=== PATIENT | male | born 1960 | race American Indian/Alaskan Native ===

== ENCOUNTER 2020-07-23 20:39 | Observation (INO) | payer OTHER ==
--- NOTE | 2020-07-23 22:51 | XRay Report ---
CHEST 2 VIEWS INDICATION: sob,cough and rales. COMPARISON: 02/09/2013. FINDINGS: Support devices: None. Heart: Within normal limits. Lungs/Pleura: No acute air space or interstitial disease. No significant pleural effusion. IMPRESSION: No acute findings. Signer Name: Errol Miranda MD Signed: 07/23/2020 10:47 PM Workstation Name: [id number]
[2020-07-23 23:30] LABS: Basophils % (Auto) 0.2 % (0.0-1.8); Eosinophils % (Auto) 0.1 % (0.0-4.3); Hematocrit 44.5 % (35.5-45.6); Hemoglobin 14.7 gm/dl (11.8-15.2); Lymphocytes # (Auto) 1.3 K/mm3 (1.2-5.4); Lymphocytes % (Auto) 13.2 % (13.4-35.0); Mean Corpuscular HGB Conc 33 % (32-34); Mean Corpuscular Volume 81 fl (84-94); Monocytes % (Auto) 10.8 % (0.0-7.3); Platelet Count 159 K/mm3 (140-440); Red Blood Count 5.49 M/mm3 (3.65-5.03); Red Cell Distribution Width 14.6 % (13.2-15.2)
[2020-07-23 23:44] LABS: Alanine Aminotransferase 27 units/L (7-56); Albumin 4.1 g/dL (3.9-5); BUN/Creatinine Ratio 20; Blood Urea Nitrogen 22 mg/dL (9-20); Calcium 9.2 mg/dL (8.4-10.2); Hemolysis Index 5
--- NOTE | 2020-07-24 02:15 | Emergency Department Report ---
ED General Adult HPI - General Chief complaint: Weakness Stated complaint: WEAKNESS/EMESIS/CHILLS PUI?: Yes Time Seen by Provider: 07/24/20 01:17 Source: patient, RN notes reviewed Mode of arrival: Ambulatory Limitations: No Limitations - History of Present Illness Initial comments: Please note that for the entire history and physical examination, I had on complete personal protective equipment. The patient was evaluated in the emergency department for symptoms described in the history of present illness. He/she was evaluated in the context of the global COVID-19 pandemic, which necessitated consideration that the patient might be at risk for infection with the virus that causes COVID-19. Institutional protocols and algorithms that pertain to the evaluation of patients at risk for COVID-19 are in a state of rapid change based on information released by regulatory bodies including the CDC and federal and state organizations. These policies and algorithms were followed during the patient's care in the emergency department. Please note that these policies, procedures and recommendations changed on a rapid basis. The patient is a pleasant 59-year-old gentleman who is not known to myself previously, has a history of diabetes, hypertension, high cholesterol, and heart disease. He presents to the ER today with a primary complaint of painless weakness, malaise, fatigue, shortness of breath, nausea, without vomiting, no loss of taste, no loss of smell, for the past 48 hours. Patient has had positive exposu res to COVID. The patient has been intermittently wearing masks. The patient has not been self isolating or self quarantining. He denies chest pain. His symptoms are constant for the past 2 days. They worsen with physical exertion. They decreased with rest. -: Gradual, days(s) Improves with: rest Worsens with: movement - Related Data Previous Rx's Medication Instructions Recorded Last Taken Type Albuterol Sulfate [Proair 90 mcg IH Q4HR PRN #2 aer.pow.ba 07/24/20 Unknown Rx Respiclick] Ondansetron [Zofran Odt] 4 mg PO Q8HR PRN #20 tab.rapdis 07/24/20 Unknown Rx Allergies Allergy/AdvReac Type Severity Reaction Status Date / Time No Known Allergies Allergy Unverified 07/23/20 22:14 ED Review of Systems ROS: Stated complaint: WEAKNESS/EMESIS/CHILLS Other details as noted in HPI Constitutional: malaise. denies: fever Eyes: denies: eye discharge, vision change ENT: congestion. denies: throat pain Respiratory: cough Cardiovascular: denies: chest pain Gastrointestinal: nausea. denies: abdominal pain, vomiting Genitourinary: denies: dysuria Musculoskeletal: myalgia Neurological: weakness Hematological/Lymphatic: denies: easy bleeding ED Past Medical Hx - Past Medical History Previous Medical History?: Yes Hx Hypertension: Yes Hx Diabetes: Yes Additional medical history: High Cholesterol - Surgical History Past Surgical History?: Yes Hx Coronary Stent: Yes (2008) Additional Surgical History: 2008 "99% blockage in [place]" Stent placed - Social History Smoking Status: Unknown if ever smoked - Medications Home Medications: Home Medications Medication Instructions Recorded Confirmed Last Taken Type Albuterol Sulfate [Proair 90 mcg IH Q4HR PRN #2 aer.pow.ba 07/24/20 Unknown Rx Respiclick] Ondansetron [Zofran Odt] 4 mg PO Q8HR PRN #20 tab.rapdis 07/24/20 Unknown Rx ED Physical Exam - General Limitations: No Limitations General appearance: alert, in no apparent distress - Head Head exam: Present: atraumatic, normocephalic - Eye Eye exam: Present: normal appearance, EOMI. Absent: nystagmus - ENT ENT exam: Present: normal exam, normal orophraynx, mucous membranes moist, normal external ear exam - Neck Neck exam: Present: normal inspection, full ROM. Absent: tenderness, meningismus - Respiratory Respiratory exam: Present: normal lung sounds bilaterally. Absent: respiratory distress, wheezes, rales, rhonchi, stridor, decreased breath sounds - Cardiovascular Cardiovascular Exam: Present: regular rate, normal rhythm, normal heart sounds. Absent: bradycardia, tachycardia, irregular rhythm, systolic murmur, diastolic murmur, rubs, gallop - GI/Abdominal GI/Abdominal exam: Present: soft. Absent: distended, tenderness, guarding, rebound, rigid, pulsatile mass - Rectal Rectal exam: Present: deferred - Extremities Exam Extremities exam: Present: normal inspection, full ROM, other (2+ pulses noted in the bilateral upper and lower extremities. There is no palpable cord. negative Homans sign. Muscular compartments are soft. The pelvis is stable.). Absent: pedal edema, calf tenderness - Back Exam Back exam: Present: normal inspection, full ROM. Absent: tenderness, CVA tender ness (R), CVA tenderness (L), paraspinal tenderness, vertebral tenderness - Neurological Exam Neurological exam: Present: alert, normal gait, other (No facial droop. Tongue midline. Extraocular movements intact bilaterally. Facial sensation intact to light touch in V1, V2, V3 distribution bilaterally. 5 and a 5 strength in 4 extremities. Sensation intact to light touch in 4 extremities.) - Psychiatric Psychiatric exam: Present: normal affect, normal mood - Skin Skin exam: Present: warm, dry, intact, normal color. Absent: rash ED Course Vital Signs 07/23/20 07/24/20 22:22 01:58 Temperature 98.4 F 99.6 F Pulse Rate 81 90 Respiratory 15 20 Rate Blood Pressure 138/94 Blood Pressure 129/80 [Right] O2 Sat by Pulse 97 99 Oximetry - Reevaluation(s) Reevaluation #1: 07/24/20 03:31 Change in plans: EKG obtained because of patient's past medical and cardiac hi story. His EKG is markedly abnormal without prior for comparison, but it is not a STEMI by morphology. The patient endorses that he is not having chest pain. Patient found to have an elevated troponin. Uncertain if patient is having myocarditis, pericarditis, cardiomyopathy, or atypical presentation of an STEMI. He denies contraindications to systemic anticoagulation. He is amenable to hospitalization at this time. He will be given aspirin, unfractionated heparin. Discussed history, physical, pertinent laboratory studies and EKG findings with cardiology on-call, Dr. Wil Conn, who agrees with plan of care, and will follow in consultation. Hospital physician, Dr. Autsin Campos to admit ED Medical Decision Making - Lab Data Result diagrams: 07/23/20 22:57 07/23/20 22:57 Vital Signs 07/23/20 07/24/20 22:22 01:58 Temperature 98.4 F 99.6 F Pulse Rate 81 90 Respiratory 15 20 Rate Blood Pressure 138/94 Blood Pressure 129/80 [Right] O2 Sat by Pulse 97 99 Oximetry Labs 07/23/20 07/23/20 22:57 22:57 WBC 9.6 RBC 5.49 H Hgb 14.7 Hct 44.5 MCV 81 L MCH 27 L MCHC 33 RDW 14.6 Plt Count 159 Lymph % (Auto) 13.2 L [place] % (Auto) 10.8 H Eos % (Auto) 0.1 Baso % (Auto) 0.2 Lymph # 1.3 [place] # 1.0 H Eos # 0.0 Baso # 0.0 Seg Neutrophils % 75.7 H Seg Neutrophils # 7.3 Sodium 134 L Potassium 4.5 Chloride 95.7 L Carbon Dioxide 22 Anion Gap 21 BUN 22 H Creatinine 1.1 Estimated GFR > 60 BUN/Creatinine Ratio 20 Glucose 241 H Calcium 9.2 Total Bilirubin 1.70 H AST 129 H ALT 27 Alkaline Phosphatase 68 Total Protein 8.5 H Albumin 4.1 Albumin/Globulin Ratio 0.9 - EKG Data -: EKG Interpreted by In EKG shows normal: sinus rhythm Rate: normal - EKG Data When compared to previous EKG there are: previous EKG unavailable 07/24/20 03:30 There is no prior EKG available for comparison. Sinus rhythm, left axis deviation, ST depression 2, 3, aVF, nonspecific ST elevation in aVL, the EKG is abnormal, the EKG is not a STEMI. - Radiology Data Radiology results: report reviewed, image reviewed Print Report Referring Physician: SHABANA CARTER Patient Name: RAFAEL QUESADA Date of : 1960 Sex: Male Report Date: 2020-07-23 Report Status: Finalized Findings [facility] [address] [place] [address] XRay Report Signed Patient: RAFAEL QUESADA MR#: [id number] 0 : 1960 Acct:[id number] Age/Sex: 59 / M ADM Date: 07/23/20 Loc: ED Attending Dr: Ordering Physician: MAVERICK JUDGE Date of Service: 07/23/20 Procedure(s): XR chest routine 2V Accession Number(s): [id number] cc: MAVERICK JUDGE Fluoro Time In Minutes: CHEST 2 VIEWS INDICATION: sob,cough and rales. COMPARISON: 02/09/2013. FINDINGS: Support devices: None. Heart: Within normal limits. Lungs/Pleura: No acute air space or interstitial disease. No significant pleural effusion. IMPRESSION: No acute findings. Signer Name: Errol Miranda MD Signed: 07/23/2020 10:47 PM Workstation Name: [id number] Transcribed By: ES Dictated By: Errol Miranda MD Electronically Authenticated By: Errol Miranda MD Signed Date/Time: 07/23/202246 DD/ 45 TD/TT: - Medical Decision Making Differential diagnosis, including but limited to: Viral syndrome, dehydration, COVID-19 Assessment and plan: 59-year-old gentleman presenting with malaise, fatigue, shortness of breath, without DVT, pulmonary embolism risk factors, low risk by Wells criteria, without chest pain, there is a COVID-19 pandemic, today is day 2/3 of symptoms, we suspect the patient is experiencing COVID-19. His physical examination is unremarkable, he is not hypoxic, he does not desaturate. Counseled patient on the natural history of COVID-19. Patient will need to follow-up with an outpatient primary care doctor. Return precautions are reviewed. The patient verbalizes understanding. Critical Care Time: Yes Critical care time in (mins) excluding proc time.: 35 Critical care attestation.: If time is entered above; I have spent that time in minutes in the direct care of this critically ill patient, excluding procedure time. ED Disposition Clinical Impression: Suspected 2019 novel coronavirus infection, NSTEMI (non-ST elevated myocardial infarction) Disposition: OP ADMIT IP TO THIS HOSP Is pt being admited?: Yes Does the pt Need Aspirin: No Condition: Serious Instructions: COVID-19 Additional Instructions: As we discussed, the patient most likely has novel coronavirus/COVID. the symptoms of COVID will typically persist 10 to 14 days. There is no cure at this time for COVID. Please make certain to self isolate and self quarantine, follow-up with an outpatient primary care doctor within the next 3 to 5 days, wash hands with soap and water frequently, thoroughly and often, patient may take the prescribed medications as needed and directed. Advance diet and drink plenty of fluids as tolerated. Avoid interactions with the very elderly, very young, and those with chronic medical conditions. Return to the emergency room right away with new pain, worsening pain, migration of pain, projectile vomiting, change in mental status, confusion, inability to tolerate liquid feeds, new, worsened or different symptoms not present on the initial emergency room evaluation. Prescriptions: Albuterol Sulfate [Proair Respiclick] 90 mcg IH Q4HR PRN #2 aer.pow.ba PRN Reason: Wheezing Ondansetron [Zofran Odt] 4 mg PO Q8HR PRN #20 tab.rapdis PRN Reason: Nausea Referrals: EDMUND SCHMIDT MD [Staff Physician] - 3-5 Days [facility] [Provider Group] - 3-5 Days Forms: Work/School Release Form(ED)
[2020-07-24] MEDS ORDERED: ASPIRIN 325 MG TAB PO ONE (03:29)
[2020-07-24] MEDS ORDERED: HEPARIN 10,000 UNITS/10 ML VIAL IV ONE (03:29)
[2020-07-24 03:30] LABS: Chol/HDL Ratio 3.47 %
[2020-07-24] MEDS ORDERED: MAGNESIUM HYDROXIDE (MOM) ORAL LIQD UDC PO PRN (04:19)
[2020-07-24] MEDS ORDERED: ONDANSETRON 4 MG/2 ML INJ IV PRN (04:19)
[2020-07-24] MEDS ORDERED: DEXTROSE 50% IN WATER (25GM) 50 ML SYRINGE IV PRN (04:19)
[2020-07-24] MEDS ORDERED: NITROGLYCERIN 0.4 MG TAB SUBL SL PRN (04:19)
[2020-07-24] MEDS ORDERED: MORPHINE 2 MG/1 ML INJ IV PRN (04:19)
[2020-07-24] MEDS ORDERED: ACETAMINOPHEN 325 MG TAB PO PRN ×2 (04:19)
--- NOTE | 2020-07-24 04:29 | History and Physical Report ---
History of Present Illness Date of examination: 07/24/20 Date of admission: 07/24/20 03:33 Chief complaint: Weakness Nausea Cough History of present illness: Patient is a 59-year-old -[place] male with known history of hypertension, diabetes mellitus, hyperlipidemia, coronary artery disease with stent placement in the past presenting to the emergency room today complaining of generalized weakness, fatigue, cough and shortness of breath for the past 2 days. Patient admits that he has been exposed to people with positive COVID and has been wearing mask intermittently. Patient has not self quarantined or isolated himself as he has been having job related travel. Patient denies any chest pain. No headache or dizziness,no fever and no chills. Work-up in the emergency room today reveals elevated troponin, abnormal EKG, however chest x-ray was within normal limits. 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 Patient currently placed on IV heparin and also placed on isolation precautions to rule out Covid19. Past History Past Medical History: CAD, diabetes, hypertension, hyperlipidemia Past Surgical History: PTCA (Stent placement in 2008) Social history: no significant social history Family history: no significant family history Medications and Allergies Allergies Allergy/AdvReac Type Severity Reaction Status Date / Time No Known Allergies Allergy Verified 07/24/20 03:33 Home Medications Medication Instructions Recorded Confirmed Last Taken Type Albuterol Sulfate [Proair 90 mcg IH Q4HR PRN #2 aer.pow.ba 07/24/20 Unknown Rx Respiclick] Ondansetron [Zofran Odt] 4 mg PO Q8HR PRN #20 tab.rapdis 07/24/20 Unknown Rx Active Meds: Active Medications Acetaminophen (Tylenol) 650 mg PO Q6H PRN PRN Reason: Pain, Mild (1-3) Acetaminophen (Tylenol) 650 mg PO Q4H PRN PRN Reason: Pain MILD(1-3)/Fever >100.5/SANCHEZ Aspirin (Ecotrin) 325 mg PO QDAY STONEY Dextrose (D50w (25gm) Syringe) 50 ml IV Q30MIN PRN; Protocol PRN Reason: Hypoglycemia Heparin Sodium/Sodium Chloride (Heparin/ 0.45% Nacl-25,000 Unit/500 Ml) 25,000 unit in 500 mls @ 20 mls/hr IV TITRATE STONEY; Protocol Sodium Chloride (Nacl 0.9% 1000 Ml) 1,000 mls @ 75 mls/hr IV DIRECT STONEY Insulin Human Lispro (Humalog) 0 unit SUB-Q ACHS STONEY; Protocol Magnesium Hydroxide (Milk Of Magnesia) 30 ml PO Q4H PRN PRN Reason: Constipation Morphine Sulfate (Morphine) 2 mg IV Q5MIN PRN PRN Reason: Chest Pain unrelieved by NTG Nitroglycerin (Nitrostat) 0.4 mg SL Q5M PRN PRN Reason: Chest Pain Ondansetron HCl (Zofran) 4 mg IV Q8H PRN PRN Reason: Nausea And Vomiting Sodium Chloride (Sodium Chloride Flush Syringe 10 Ml) 10 ml IV PRN PRN PRN Reason: LINE FLUSH Sodium Chloride (Sodium Chloride Flush Syringe 10 Ml) 10 ml IV BID STONEY Sodium Chloride (Sodium Chloride Flush Syringe 10 Ml) 10 ml IV PRN PRN PRN Reason: LINE FLUSH Review of Systems Constitutional: fatigue, weakness, no fever, no chills Ears, nose, mouth and throat: no nasal congestion, no sore throat Cardiovascular: no chest pain, no palpitations Respiratory: cough, shortness of breath Gastrointestinal: nausea, no abdominal pain, no vomiting, no diarrhea Genitourinary Male: no dysuria, no hematuria, no flank pain Musculoskeletal: no neck pain, no low back pain Integumentary: no rash, no pruritis Neurological: no headaches, no confusion Psychiatric: no anxiety, no depression Exam - Constitutional Vitals: Temp Pulse Resp BP Pulse Ox 99.6 F 90 20 129/80 99 07/24/20 01:58 07/24/20 01:58 07/24/20 01:58 07/24/20 01:58 07/24/20 01:58 General appearance: Present: no acute distress, well-nourished - EENT Eyes: Present: PERRL, EOM intact, scleral icterus ENT: hearing intact, clear oral mucosa, dentition normal - Neck Neck: Present: supple, normal ROM - Respiratory Respiratory effort: normal Respiratory: bilateral: CTA - Cardiovascular Rhythm: regular Heart Sounds: Present: S1 & S2. Absent: gallop, rub - Extremities Extremities: no ischemia, pulses intact, pulses symmetrical, No edema, Full ROM - Abdominal General gastrointestinal: Present: soft, non-tender, non-distended, normal bowel sounds. Absent: mass - Integumentary Integumentary: Present: clear, warm, dry. Absent: rash - Musculoskeletal Musculoskeletal: strength equal bilaterally, generalized weakness - Psychiatric Psychiatric: appropriate mood/affect, intact judgment & insight, memory intact, cooperative - Neurologic Neurologic: CNII-XII intact, no focal deficits, moves all extremities HEART Score - HEART Score History: Highly suspicious EKG: Non-specific Age: 45-65 Risk factors: > 3 risk factors or hx of atherosclerotic disease Troponin: Troponin T 0.786 ng/mL (0.00-0.029) H* 07/24/20 02:32 Troponin: > 3x normal limit HEART Score: 8 Results - Labs CBC & Chem 7: 07/23/20 22:57 07/23/20 22:57 Labs: Abnormal lab results 07/23/20 07/23/20 07/24/20 Range/Units 22:57 22:57 02:32 RBC 5.49 H (3.65-5.03) M/mm3 MCV 81 L (84-94) fl MCH 27 L (28-32) pg Lymph % (Auto) 13.2 L (13.4-35.0) % [place] % (Auto) 10.8 H (0.0-7.3) % [place] # 1.0 H (0.0-0.8) K/mm3 Seg Neutrophils % 75.7 H (40.0-70.0) % Sodium 134 L (137-145) mmol/L Chloride 95.7 L (98-107) mmol/L BUN 22 H (9-20) mg/dL Glucose 241 H (75-100) mg/dL Total Bilirubin 1.70 H (0.1-1.2) mg/dL AST 129 H (5-40) units/L Troponin T 0.786 H* (0.00-0.029) ng/mL Total Protein 8.5 H (6.3-8.2) g/dL Cholesterol 205 H (50-199) mg/dL LDL Cholesterol Direct 141 H (50-130) mg/dL Assessment and Plan - Patient Problems (1) NSTEMI (non-ST elevated myocardial infarction) Current Visit: Yes Status: Acute Plan to address problem: Patient denies any chest pain at this time. We will check serial cardiac enzymes. Patient will be placed on daily aspirin, sublingual nitroglycerin and IV morphine as needed for chest pain loading rack supervisor Dr. Conn has been consulted for follow-up and for further recommendation. (2) Suspected 2019 novel coronavirus infection Current Visit: Yes Status: Acute Plan to address problem: Patient placed on isolation precautions. We also place a consult to infectious disease for further evaluation and recommendation. (3) DVT prophylaxis Current Visit: Yes Status: Acute Plan to address problem: Patient currently on anticoagulation. (4) Full code status Current Visit: Yes Status: Acute
[2020-07-24] MEDS ORDERED: ASPIRIN 325 MG TAB ONE (04:37)
[2020-07-24] MEDS ORDERED: HEPARIN/ 0.45% NACL DRIP 25,000 UNIT/500 ML BAG ONE (04:37)
[2020-07-24] MEDS ORDERED: HEPARIN 10,000 UNITS/10 ML VIAL ONE (04:37)
[2020-07-24] MEDS: HEPARIN/ 0.45% NACL DRIP 25,000 UNIT/500 ML BAG IV SCH (04:47)
[2020-07-24] MEDS: INSULIN LISPRO 100 UNIT/ML VIAL 3 mL SUB-Q SCH ×4 (09:11→22:15)
[2020-07-24 10:09] LABS: INR 1.21 (0.87-1.13)
[2020-07-24 10:10] LABS: Partial Thromboplastin Time 38.9 Sec. (24.2-36.6)
--- NOTE | 2020-07-24 10:39 | Consultation ---
History of Present Illness Consult date: 07/24/20 Requesting physician: YENNI ODOM Consult reason: chest pain, elevated troponin, other (abn ekg) History of present illness: The patient is a 59-year-old male with a past medical history of CAD s/p CABG in 2009 (robotic ARANDA to LAD), HTN, DM, HLP. He has been seen by our practice on prior hospitalization, he has not been compliant with OP follow up since CABG in 2009. He presented with c/o generalized weakness, fatigue, vomiting, dry nonproductive cough and SOB for 2 days prior to arrival. Patient admits that he has been exposed to people with positive COVID at his workplace and has been wearing mask intermittently. Patient has not self quarantined or isolated himself as he has been having job related travel. Following arrival, pt noted to have significantly elevated troponin (0.786) and thus cardiology has been consulted. Pt denies any occurrence of chest pain, palpitations, fever, chills, diaphoresis, dizziness or syncope. CXR with NAF. Pt is currently on isolation precautions as he is COVID-19 PUI. LHC done 03/2010 showed 99% stenosis in ostial LAD, circ with LI, ramus with LI, RCA LI. Pt referred for CABG. Past History Past Medical History: CAD, diabetes, hypertension, hyperlipidemia Past Surgical History: PTCA (Stent placement in 2008) Social history: no significant social history Family history: no significant family history Medications and Allergies Allergies Allergy/AdvReac Type Severity Reaction Status Date / Time No Known Allergies Allergy Verified 07/24/20 03:33 Home Medications Medication Instructions Recorded Confirmed Last Taken Type Albuterol Sulfate [Proair 90 mcg IH Q4HR PRN #2 aer.pow.ba 07/24/20 Unknown Rx Respiclick] Ondansetron [Zofran Odt] 4 mg PO Q8HR PRN #20 tab.rapdis 07/24/20 Unknown Rx Active Meds: Active Medications Acetaminophen (Tylenol) 650 mg PO Q4H PRN PRN Reason: Pain MILD(1-3)/Fever >100.5/SANCHEZ Aspirin (Ecotrin) 325 mg PO QDAY STONEY Dextrose (D50w (25gm) Syringe) 50 ml IV Q30MIN PRN; Protocol PRN Reason: Hypoglycemia Heparin Sodium/Sodium Chloride (Heparin/ 0.45% Nacl-25,000 Unit/500 Ml) 25,000 unit in 500 mls @ 20 mls/hr IV TITRATE STONEY; Protocol Last Admin: 07/24/20 04:47 Dose: 1,000 units/hr, 20 mls/hr Documented by: Sodium Chloride (Nacl 0.9% 1000 Ml) 1,000 mls @ 75 mls/hr IV DIRECT STONEY Insulin Human Lispro (Humalog) 0 unit SUB-Q ACHS [facility]; Protocol Last Admin: 07/24/20 09:11 Dose: Not Given Documented by: Magnesium Hydroxide (Milk Of Magnesia) 30 ml PO Q4H PRN PRN Reason: Constipation Morphine Sulfate (Morphine) 2 mg IV Q5MIN PRN PRN Reason: Chest Pain unrelieved by NTG Nitroglycerin (Nitrostat) 0.4 mg SL Q5M PRN PRN Reason: Chest Pain Ondansetron HCl (Zofran) 4 mg IV Q8H PRN PRN Reason: Nausea And Vomiting Sodium Chloride (Sodium Chloride Flush Syringe 10 Ml) 10 ml IV PRN PRN PRN Reason: LINE FLUSH Sodium Chloride (Sodium Chloride Flush Syringe 10 Ml) 10 ml IV BID [facility] Last Admin: 07/24/20 09:11 Dose: Not Given Documented by: Review of Systems Constitutional: fatigue, weakness (generalized), no weight loss, no weight gain, no fever, no chills, no sweats Ears, nose, mouth and throat: no ear pain, no nose pain, no sinus pressure, no sinus pain Cardiovascular: shortness of breath, dyspnea on exertion, no chest pain, no orthopnea, no palpitations, no rapid/irregular heart beat, no edema, no syncope, no lightheadedness, no high blood pressure, no leg edema Respiratory: cough, shortness of breath, dyspnea on exertion, no cough with sputum, no congestion, no wheezing, no pain on inspiration Gastrointestinal: nausea, vomiting, no abdominal pain, no diarrhea, no constipation, no change in bowel habits Genitourinary Male: no dysuria, no hematuria, no flank pain, no discharge, no urinary frequency, no urinary hesitancy Musculoskeletal: no neck stiffness, no neck pain, no shooting arm pain, no arm numbness/tingling, no low back pain, no shooting leg pain Integumentary: no rash, no pruritis, no redness, no sores, no wounds Neurological: weakness (generalized), no head injury, no paralysis, no parathe susana, no numbness, no tingling, no seizures, no syncope Psychiatric: no anxiety Endocrine: no cold intolerance, no heat intolerance Hematologic/Lymphatic: no easy bruising, no easy bleeding Allergic/Immunologic: no urticaria Physical Examination Vital Signs Temp Pulse Resp BP Pulse Ox 98.4 F 81 15 138/94 97 07/23/20 22:22 07/23/20 22:22 07/23/20 22:22 07/23/20 22:22 07/23/20 22:22 General appearance: no acute distress HEENT: Positive: PERRL, Normocephaly, Mucus Membranes Moist Neck: Positive: neck supple, trachea midline Cardiac: Positive: Reg Rate and Rhythm, S1/S2 Lungs: Positive: Decreased Breath Sounds Neuro: Positive: Grossly Intact Abdomen: Negative: Tender Skin: Negative: Rash Musculoskeletal: No Pain Extremities: Absent: edema Results 07/23/20 22:57 07/23/20 22:57 Cardiac Enzymes 07/23/20 Range/Units 22:57 AST 129 H (5-40) units/L Coagulation 07/24/20 Range/Units 09:28 PT 15.5 H (12.2-14.9) Sec. INR 1.21 H (0.87-1.13) APTT 38.9 H (24.2-36.6) Sec. Lipids 07/24/20 Range/Units 02:32 Triglycerides 91 (2-149) mg/dL Cholesterol 205 H (50-199) mg/dL HDL Cholesterol 59 (40-59) mg/dL Cholesterol/HDL Ratio 3.47 % CBC 07/23/20 Range/Units 22:57 WBC 9.6 (4.5-11.0) K/mm3 RBC 5.49 H (3.65-5.03) M/mm3 Hgb 14.7 (11.8-15.2) gm/dl Hct 44.5 (35.5-45.6) % Plt Count 159 (140-440) K/mm3 Lymph # 1.3 (1.2-5.4) K/mm3 [place] # 1.0 H (0.0-0.8) K/mm3 Eos # 0.0 (0.0-0.4) K/mm3 Baso # 0.0 (0.0-0.1) K/mm3 Comprehensive Metabolic Panel 07/23/20 Range/Units 22:57 Sodium 134 L (137-145) mmol/L Potassium 4.5 (3.6-5.0) mmol/L Chloride 95.7 L (98-107) mmol/L Carbon Dioxide 22 (22-30) mmol/L BUN 22 H (9-20) mg/dL Creatinine 1.1 (0.8-1.3) mg/dL Glucose 241 H (75-100) mg/dL Calcium 9.2 (8.4-10.2) mg/dL AST 129 H (5-40) units/L ALT 27 (7-56) units/L Alkaline Phosphatase 68 (35-129) units/L Total Protein 8.5 H (6.3-8.2) g/dL Albumin 4.1 (3.9-5) g/dL - Imaging and Cardiology Cardiac cath: report reviewed (03/2010 showed 99% stenosis in ostial LAD, circ with LI, ramus with LI, RCA LI. Pt referred for CABG. ) EKG: report reviewed, image reviewed EKG interpretations - Telemetry EKG Rhythm: Sinus Rhythm - EKG Sinus rhythms and dysrhythmias: sinus rhythm Repolarization changes or abnormalities: nonspecific abnormality, ST segment, and/or T wave Assessment and Plan Pt presents with suspected COVID-19 infection and NSTEMI. He denies any occurrence of chest pain, ECG with NSR and nonspecific abnormalities. Currently stable cardiac status. Agree with IV heparin and ASA 325, initiate statin, lopressor, lisinopril. Cont to trend Shaji and f/u ECG in AM. Await COVID-19 test results. Will plan to obtain echo and perform ischemic evaluation (likely LHC) pending COVID-19 test results and management of suspected COVID. Will follow. Further recs to follow per hospital course. The patient has been seen in conjunction with Dr. Marquez who agrees with the assessment and plan of care. - Patient Problems (1) Suspected 2019 novel coronavirus infection Current Visit: Yes Status: Acute (2) NSTEMI (non-ST elevated myocardial infarction) Current Visit: Yes Status: Acute (3) CAD (coronary artery disease) Current Visit: Yes Status: Chronic (4) History of coronary artery bypass graft Current Visit: Yes Status: Chronic (5) HTN (hypertension) Current Visit: Yes Status: Chronic (6) Hyperlipidemia Current Visit: Yes Status: Chronic (7) Diabetes Current Visit: Yes Status: Chronic
--- NOTE | 2020-07-24 11:57 | Consultation ---
History of Present Illness - Reason for Consult Consult date: 07/24/20 R/o COVID Requesting physician: SHAWN SAXENA - History of Present Illness 59 years old male with history of hypertension, diabetes mellitus, hyperlipidemia, coronary artery disease status post stent/CABG, admitted on 07/24/2020 due to 2-day history of generalized weakness, fatigue, dry cough and shortness of breath. Patient reports he has been exposed to coworkers with COVID-19 infection. On arrival, patient is afebrile, vital signs are stable, CBC normal, creatinine normal, troponin was found at 0.7, CK 1023, AST 129. Cardiology seen patient for NSTEMI on IV heparin. Chest x-ray no consolidation. Currently on room air, no hypoxia. Review of Systems: reviewed ED and H&P notes. Limited due to PPE conservation strategy Past History Past Medical History: CAD, diabetes, hypertension, hyperlipidemia Past Surgical History: PTCA (Stent placement in 2008) Social history: no significant social history Family history: no significant family history Medications and Allergies Allergies Allergy/AdvReac Type Severity Reaction Status Date / Time No Known Allergies Allergy Verified 07/24/20 03:33 Home Medications Medication Instructions Recorded Confirmed Last Taken Type Albuterol Sulfate [Proair 90 mcg IH Q4HR PRN #2 aer.pow.ba 07/24/20 Unknown Rx Respiclick] Ondansetron [Zofran Odt] 4 mg PO Q8HR PRN #20 tab.rapdis 07/24/20 Unknown Rx Active Meds: Active Medications Acetaminophen (Tylenol) 650 mg PO Q4H PRN PRN Reason: Pain MILD(1-3)/Fever >100.5/SANCHEZ Aspirin (Ecotrin) 325 mg PO QDAY STONEY Atorvastatin Calcium (Lipitor) 80 mg PO QHS [facility] Dextrose (D50w (25gm) Syringe) 50 ml IV Q30MIN PRN; Protocol PRN Reason: Hypoglycemia Heparin Sodium/Sodium Chloride (Heparin/ 0.45% Nacl-25,000 Unit/500 Ml) 25,000 unit in 500 mls @ 20 mls/hr IV TITRATE STONEY; Protocol Last Admin: 07/24/20 04:47 Dose: 1,000 units/hr, 20 mls/hr Documented by: Sodium Chloride (Nacl 0.9% 1000 Ml) 1,000 mls @ 75 mls/hr IV DIRECT [facility] Insulin Human Lispro (Humalog) 0 unit SUB-Q ACHS [facility]; Protocol Last Admin: 07/24/20 09:11 Dose: Not Given Documented by: Lisinopril (Zestril) 10 mg PO QDAY [facility] Magnesium Hydroxide (Milk Of Magnesia) 30 ml PO Q4H PRN PRN Reason: Constipation Metoprolol Tartrate (Metoprolol) 25 mg PO BID [facility] Morphine Sulfate (Morphine) 2 mg IV Q5MIN PRN PRN Reason: Chest Pain unrelieved by NTG Nitroglycerin (Nitrostat) 0.4 mg SL Q5M PRN PRN Reason: Chest Pain Ondansetron HCl (Zofran) 4 mg IV Q8H PRN PRN Reason: Nausea And Vomiting Sodium Chloride (Sodium Chloride Flush Syringe 10 Ml) 10 ml IV PRN PRN PRN Reason: LINE FLUSH Sodium Chloride (Sodium Chloride Flush Syringe 10 Ml) 10 ml IV BID [facility] Last Admin: 07/24/20 09:11 Dose: Not Given Documented by: Physical Examination - Physical Exam Narrative exam: Physical Exam: reviewed ED and hospitalist notes, limited due to conservation of PPE General appearance: limited due to conservation of PPE Eyes: limited due to conservation of PPE HENT: Atraumatic; limited due to conservation of PPE Lungs: limited due to conservation of PPE CV: limited due to conservation of PPE Abdomen: limited due to conservation of PPE Extremities: limited due to conservation of PPE Skin: limited due to conservation of PPE Psych: limited due to conservation of PPE Neuro: limited due to conservation of PPE - Constitutional Vitals: Vital Signs Temp Pulse Resp BP Pulse Ox 99.6 F 90 20 129/83 98 07/24/20 01:58 07/24/20 01:58 07/24/20 01:58 07/24/20 05:20 07/24/20 05:20 Temperature -Last 24 Hours Temperature 99.6 F Temperature 98.4 F Results - Labs CBC & Chem 7: 07/23/20 22:57 07/23/20 22:57 Labs: Abnormal lab results 07/23/20 07/23/20 07/24/20 Range/Units 22:57 22:57 02:32 RBC 5.49 H (3.65-5.03) M/mm3 MCV 81 L (84-94) fl MCH 27 L (28-32) pg Lymph % (Auto) 13.2 L (13.4-35.0) % Moore % (Auto) 10.8 H (0.0-7.3) % Moore # 1.0 H (0.0-0.8) K/mm3 Seg Neutrophils % 75.7 H (40.0-70.0) % PT (12.2-14.9) Sec. INR (0.87-1.13) APTT (24.2-36.6) Sec. Heparin Anti-Xa Level (0.3-0.7) U.I./ml Sodium 134 L (137-145) mmol/L Chloride 95.7 L (98-107) mmol/L BUN 22 H (9-20) mg/dL Glucose 241 H (75-100) mg/dL POC Glucose (70-105) Magnesium (1.7-2.3) mg/dL Total Bilirubin 1.70 H (0.1-1.2) mg/dL AST 129 H (5-40) units/L Total Creatine Kinase (55-170) units/L Troponin T 0.786 H* (0.00-0.029) ng/mL Total Protein 8.5 H (6.3-8.2) g/dL Cholesterol 205 H (50-199) mg/dL LDL Cholesterol Direct 141 H (50-130) mg/dL 07/24/20 07/24/20 07/24/20 Range/Units 09:28 09:28 11:01 RBC (3.65-5.03) M/mm3 MCV (84-94) fl MCH (28-32) pg Lymph % (Auto) (13.4-35.0) % Moore % (Auto) (0.0-7.3) % Moore # (0.0-0.8) K/mm3 Seg Neutrophils % (40.0-70.0) % PT 15.5 H (12.2-14.9) Sec. INR 1.21 H (0.87-1.13) APTT 38.9 H (24.2-36.6) Sec. Heparin Anti-Xa Level 0.26 L (0.3-0.7) U.I./ml Sodium (137-145) mmol/L Chloride (98-107) mmol/L BUN (9-20) mg/dL Glucose (75-100) mg/dL POC Glucose (70-105) Magnesium 2.40 H (1.7-2.3) mg/dL Total Bilirubin (0.1-1.2) mg/dL AST (5-40) units/L Total Creatine Kinase 1023 H (55-170) units/L Troponin T (0.00-0.029) ng/mL Total Protein (6.3-8.2) g/dL Cholesterol (50-199) mg/dL LDL Cholesterol Direct (50-130) mg/dL 07/24/20 Range/Units 11:43 RBC (3.65-5.03) M/mm3 MCV (84-94) fl MCH (28-32) pg Lymph % (Auto) (13.4-35.0) % Moore % (Auto) (0.0-7.3) % Moore # (0.0-0.8) K/mm3 Seg Neutrophils % (40.0-70.0) % PT (12.2-14.9) Sec. INR (0.87-1.13) APTT (24.2-36.6) Sec. Heparin Anti-Xa Level (0.3-0.7) U.I./ml Sodium (137-145) mmol/L Chloride (98-107) mmol/L BUN (9-20) mg/dL Glucose (75-100) mg/dL POC Glucose 157 H (70-105) Magnesium (1.7-2.3) mg/dL Total Bilirubin (0.1-1.2) mg/dL AST (5-40) units/L Total Creatine Kinase (55-170) units/L Troponin T (0.00-0.029) ng/mL Total Protein (6.3-8.2) g/dL Cholesterol (50-199) mg/dL LDL Cholesterol Direct (50-130) mg/dL Assessment and Plan Cultures: COVID PCR pending Assessment: 59 years old male with history of hypertension, diabetes mellitus, hyperlipidemia, CAD status post CABG, admitted on 07/24/2020 due to 2-day history of generalized weakness: #Cough: Chest x-ray negative. No fever. No leukocytosis or neutropenia. I doubt COVID-19 pneumonia or bacterial pneumonia. Patient is currently not hypoxic. #NSTEMI: Per cardiology on Heparin drip #Elevated LFTs: Mildly elevated. Recommendations: -Follow-up COVID-19 PCR -Patient is not hypoxic -Obtain procalcitonin -Monitor LFTs -MN per cardiology -If SARS-CoV-2 PCR is positive, will consider dexamethasone and Remdesivir only if hypoxia -No indication for systemic antibiotics at this time Will follow Jen Liz MD Infectious Diseases [employer] [facility], [place] [facility] M [phone] O [phone]
--- NOTE | 2020-07-24 12:53 | Event Note ---
Date: 07/24/20 Patient here with malaize and generalized weakness. Has possible exposure to COVID-19 Here in the ED, he was noted to have elevated troponin so he was started on heparin drip. Cardiology has been consulted COVID-19 test pending
[2020-07-24] MEDS: LISINOPRIL 10 MG TAB PO SCH (13:18)
[2020-07-24] MEDS: METOPROLOL TARTRATE 25 MG TAB PO SCH ×2 (13:19→22:15)
[2020-07-25] MEDS: HEPARIN/ 0.45% NACL DRIP 25,000 UNIT/500 ML BAG IV SCH (03:25)
[2020-07-25 04:16] LABS: INR 1.1 (0.87-1.13)
[2020-07-25 06:31] LABS: Basophils % (Auto) 0.2 % (0.0-1.8); Eosinophils % (Auto) 0.4 % (0.0-4.3); Hematocrit 44.2 % (35.5-45.6); Lymphocytes # (Auto) 1.6 K/mm3 (1.2-5.4); Lymphocytes % (Auto) 19.4 % (13.4-35.0); Mean Corpuscular HGB Conc 32 % (32-34); Mean Corpuscular Volume 82 fl (84-94); Monocytes # (Auto) 1.1 K/mm3 (0.0-0.8); Monocytes % (Auto) 13.6 % (0.0-7.3); Platelet Count 145 K/mm3 (140-440); Red Blood Count 5.37 M/mm3 (3.65-5.03); Red Cell Distribution Width 14.4 % (13.2-15.2)
[2020-07-25 06:39] LABS: BUN/Creatinine Ratio 24; Blood Urea Nitrogen 31 mg/dL (9-20); Hemolysis Index 10
[2020-07-25] MEDS ORDERED: SODIUM CHLORIDE 0.9% 500 ML 500 ML IV SCH (09:00)
[2020-07-25] MEDS: LISINOPRIL 10 MG TAB PO SCH (09:27)
[2020-07-25] MEDS: METOPROLOL TARTRATE 25 MG TAB PO SCH ×2 (09:27→22:22)
[2020-07-25] MEDS: INSULIN LISPRO 100 UNIT/ML VIAL 3 mL SUB-Q SCH ×4 (09:27→22:23)
[2020-07-25] MEDS ORDERED: HEPARIN 10,000 UNITS/10 ML VIAL ONE (09:53)
[2020-07-25] MEDS ORDERED: HEPARIN/NS 5000 UNIT/500ML 1,000 ML IR ONE (09:53)
[2020-07-25] MEDS ORDERED: SODIUM CHLORIDE 0.9% 500 ML 500 ML ONE (09:54)
[2020-07-25] MEDS ORDERED: VERAPAMIL 5 MG/2 ML INJ ONE (09:54)
[2020-07-25] MEDS ORDERED: NITROGLYCERIN SYRINGE 0 ML ONE (09:54)
[2020-07-25] MEDS ORDERED: ASPIRIN EC 325 MG TAB PO SCH (10:00)
--- NOTE | 2020-07-25 10:09 | Progress Note ---
Assessment and Plan COVID-19 testing is NEGATIVE. Shaji continued to trend upwards overnight. Pt denies any occurrence of chest pain. Coronary angiography recommended today. Indications, potential risks and benefits of LHC reviewed with pt and he is agreeable to proceed. Await findings. Obtain echo. The patient has been seen in conjunction with Dr. Marquez who agrees with the assessment and plan of care. - Patient Problems (1) Suspected 2019 novel coronavirus infection Current Visit: Yes Status: Ruled-out Plan to address problem: COVID-19 testing is NEGATIVE. (2) NSTEMI (non-ST elevated myocardial infarction) Current Visit: Yes Status: Acute (3) CAD (coronary artery disease) Current Visit: Yes Status: Chronic (4) History of coronary artery bypass graft Current Visit: Yes Status: Chronic (5) HTN (hypertension) Current Visit: Yes Status: Chronic (6) Hyperlipidemia Current Visit: Yes Status: Chronic (7) Diabetes Current Visit: Yes Status: Chronic Subjective Date of service: 07/25/20 Principal diagnosis: NSTEMI Interval history: pt resting in bed, no current cardiac complaints, no chest pain, in SR on tele, no acute events overnight. Objective Last Vital Signs Temp 99.2 F 07/25/20 04:14 Pulse 74 07/25/20 04:14 Resp 18 07/25/20 04:14 BP 105/62 07/25/20 04:14 Pulse Ox 96 07/25/20 04:14 - Physical Examination General: No Apparent Distress HEENT: Positive: PERRL, Normocephaly, Mucus Membranes Moist Neck: Positive: neck supple, trachea midline Cardiac: Positive: Reg Rate and Rhythm, S1/S2 Lungs: Positive: Decreased Breath Sounds Neuro: Positive: Grossly Intact Abdomen: Negative: Tender Skin: Negative: Rash Musculoskeletal: No Pain Extremities: Absent: edema - Labs and Meds Coagulation 07/24/20 07/25/20 Range/Units 09:28 03:38 PT 15.5 H 14.3 (12.2-14.9) Sec. INR 1.21 H 1.10 (0.87-1.13) APTT 38.9 H (24.2-36.6) Sec. CBC 07/25/20 Range/Units 03:38 WBC 8.4 (4.5-11.0) K/mm3 RBC 5.37 H (3.65-5.03) M/mm3 Hgb 14.0 (11.8-15.2) gm/dl Hct 44.2 (35.5-45.6) % Plt Count 145 (140-440) K/mm3 Lymph # 1.6 (1.2-5.4) K/mm3 [place] # 1.1 H (0.0-0.8) K/mm3 Eos # 0.0 (0.0-0.4) K/mm3 Baso # 0.0 (0.0-0.1) K/mm3 Comprehensive Metabolic Panel 07/25/20 Range/Units 03:38 Sodium 135 L (137-145) mmol/L Potassium 4.1 (3.6-5.0) mmol/L Chloride 94.2 L (98-107) mmol/L Carbon Dioxide 25 (22-30) mmol/L BUN 31 H (9-20) mg/dL Creatinine 1.3 (0.8-1.3) mg/dL Glucose 157 H (75-100) mg/dL Calcium 9.0 (8.4-10.2) mg/dL - Imaging and Cardiology EKG: report reviewed, image reviewed Cardiac cath: report reviewed (03/2010 showed 99% stenosis in ostial LAD, circ with LI, ramus with LI, RCA LI. Pt referred for CABG. ) - Telemetry EKG Rhythm: Sinus Rhythm - EKG Sinus rhythms and dysrhythmias: sinus rhythm Repolarization changes or abnormalities: nonspecific abnormality, ST segment, and/or T wave
[2020-07-25] MEDS ORDERED: ASPIRIN 81 MG TAB CHEW ONE ×2 (10:15→10:20)
[2020-07-25] MEDS: LIDOCAINE (2%) 20 MG/1 ML VIAL 20 ML MDV INFILTRATI ONE ×2 (10:23→10:24)
[2020-07-25] MEDS: fentaNYL 100 MCG/2 ML INJ ONE ×2 (10:23→10:24)
[2020-07-25] MEDS: MIDAZOLAM 2 MG/2 ML INJ ONE ×2 (10:23→10:24)
--- NOTE | 2020-07-25 11:29 | Progress Note ---
Assessment and Plan Cultures: COVID PCR pending Assessment: 59 years old male with history of hypertension, diabetes mellitus, hyperlipidemia, CAD status post CABG, admitted on 07/24/2020 due to 2-day history of generalized weakness: #Fever: secondary to ACS vs SIRS from ? unknown source. procal 0.3. #Cough: Chest x-ray negative. No fever. No leukocytosis or neutropenia. COVID PCR neg. Patient is currently not hypoxic. #NSTEMI: Per cardiology on Heparin drip, troponin worsening #Elevated LFTs: Mildly elevated. Recommendations: -Obtain blood cx, Ua -repeat CXR -Monitor LFTs -TX per cardiology -No indication for systemic antibiotics at this time -monitor fever, likely due to acute TX Will follow Jen Liz MD Infectious Diseases [employer] [facility], [place] M [phone] O [phone] Subjective Date of service: 07/25/20 Principal diagnosis: NSTEMI Interval history: Feels better, no chest pain noted low grade fever Objective - Exam Narrative Exam: Constitutional: Alert, cooperative. No acute distress Head, Ears, Nose: Normocephalic, atraumatic. External ears, nose normal Eyes: Conjunctivae/corneas clear. No icterus. No ptosis. Neck: Supple, no meningeal signs Cardiovascular: S1, S2 normal. Respiratory: Good air entry, clear to auscultation bilaterally GI: Soft, non-tender; bowel sounds normal. No peritoneal signs Musculoskeletal: no edema, deformities Skin: No rash or abscess Hem/Lymphatic: No palpable cervical or supraclavicular nodes. No lymphangitis Psych: Mood ok. Affect normal Neurological: Awake, alert, oriented. No gross abnormality - Constitutional Vitals: Vital Signs Temp Pulse Resp BP Pulse Ox 99.2 F 74 18 105/62 96 07/25/20 04:14 07/25/20 04:14 07/25/20 04:14 07/25/20 04:14 07/25/20 04:14 Temperature -Last 24 Hours Temperature 99.2 F Temperature 100.5 F Temperature 100.5 F Temperature 99.3 F - Labs CBC & Chem 7: 07/25/20 03:38 07/25/20 03:38 Labs: Abnormal lab results 07/24/20 07/24/20 07/24/20 Range/Units 09:28 11:01 11:43 RBC (3.65-5.03) M/mm3 MCV (84-94) fl MCH (28-32) pg [place] % (Auto) (0.0-7.3) % [place] # (0.0-0.8) K/mm3 Heparin Anti-Xa Level 0.26 L (0.3-0.7) U.I./ml Sodium (137-145) mmol/L Chloride (98-107) mmol/L BUN (9-20) mg/dL Glucose (75-100) mg/dL POC Glucose 157 H (70-105) Troponin T 1.100 H* D (0.00-0.029) ng/mL 07/24/20 07/24/20 07/24/20 Range/Units 17:34 18:52 22:24 RBC (3.65-5.03) M/mm3 MCV (84-94) fl MCH (28-32) pg [place] % (Auto) (0.0-7.3) % [place] # (0.0-0.8) K/mm3 Heparin Anti-Xa Level 0.20 L (0.3-0.7) U.I./ml Sodium (137-145) mmol/L Chloride (98-107) mmol/L BUN (9-20) mg/dL Glucose (75-100) mg/dL POC Glucose 235 H 194 H (70-105) Troponin T (0.00-0.029) ng/mL 07/25/20 07/25/20 07/25/20 Range/Units 03:38 03:38 03:38 RBC 5.37 H (3.65-5.03) M/mm3 MCV 82 L (84-94) fl MCH 26 L (28-32) pg [place] % (Auto) 13.6 H (0.0-7.3) % [place] # 1.1 H (0.0-0.8) K/mm3 Heparin Anti-Xa Level 0.26 L (0.3-0.7) U.I./ml Sodium 135 L (137-145) mmol/L Chloride 94.2 L (98-107) mmol/L BUN 31 H (9-20) mg/dL Glucose 157 H (75-100) mg/dL POC Glucose (70-105) Troponin T 1.220 H* (0.00-0.029) ng/mL 07/25/20 Range/Units 08:15 RBC (3.65-5.03) M/mm3 MCV (84-94) fl MCH (28-32) pg [place] % (Auto) (0.0-7.3) % [place] # (0.0-0.8) K/mm3 Heparin Anti-Xa Level (0.3-0.7) U.I./ml Sodium (137-145) mmol/L Chloride (98-107) mmol/L BUN (9-20) mg/dL Glucose (75-100) mg/dL POC Glucose 162 H (70-105) Troponin T (0.00-0.029) ng/mL
[2020-07-25] MEDS ORDERED: traMADol 50 MG TAB PO PRN (11:31)
[2020-07-25] MEDS ORDERED: HYDROcodone/ACETAMINOPHEN 5-325 MG TAB PO PRN (11:31)
--- NOTE | 2020-07-25 11:34 | Event Note ---
Date: 07/25/20 S/p [facility] today via right groin approach which showed patent graft, otherwise patent coronaries, EF ~35% - ? viral myocarditis. tte reviewed - EF 40-45%, impaired relaxation, mid anterolateral and apical lateral wall segments are hypokinetic. D/c heparin gtt. Optimize medical management and anticipate d/c in AM. Mary Alice JOHNSON NP / DR. ODEN
--- NOTE | 2020-07-25 16:37 | Progress Note ---
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 viral myocarditis. tte reviewed - EF 40-45%, impaired relaxation, mid anterolateral and apical lateral wall segments are hypokinetic. D/c heparin gtt. Optimize medical management and anticipate d/c in AM. --New onset systolic CHF with reduced EF on BB and ACEI, dietary and fluid restriction -- Suspected 2019 novel coronavirus infection Patient placed on isolation precautions. COVID19 test was negative --Fever: secondary to ACS vs SIRS from ? unknown source. procal 0.3. Follow blood culture and UA Continue to monitor without antibiotics for now -- DVT prophylaxis SCD --Full code status 07/25: s/p cardiac cath today, cardiology following. Stop heparin drip. If clinically stable possible DC tomorrow Subjective Date of service: 07/25/20 Principal diagnosis: NSTEMI Interval history: Patient seen and examined. Medical records and medication list reviewed. No acute event overnight noted by the RN. Status post cardiac cath today Discussed plan of care at bedside with patient. Vitals noted Objective - Exam Narrative Exam: General appearance: Present: no acute distress, well-nourished - EENT Eyes: Present: PERRL, EOM intact, scleral icterus ENT: hearing intact, clear oral mucosa, dentition normal - Neck Neck: Present: supple, normal ROM - Respiratory Respiratory effort: normal Respiratory: bilateral: CTA - Cardiovascular Rhythm: regular Heart Sounds: Present: S1 & S2. Absent: gallop, rub - Extremities Extremities: no ischemia, pulses intact, pulses symmetrical, No edema, Full ROM - Abdominal General gastrointestinal: Present: soft, non-tender, non-distended, normal bowel sounds. Absent: mass - Integumentary Integumentary: Present: clear, warm, dry. Absent: rash - Musculoskeletal Musculoskeletal: strength equal bilaterally, generalized weakness - Psychiatric Psychiatric: appropriate mood/affect, intact judgment & insight, memory intact, cooperative - Neurologic Neurologic: CNII-XII intact, no focal deficits, moves all extremities - Constitutional Vitals: Vital Signs - 12hr 07/25/20 07/25/20 07/25/20 11:48 12:11 13:21 Temperature 97.7 F 98.7 F Pulse Rate 69 77 88 Respiratory 16 15 16 Rate Blood Pressure 101/79 107/75 105/65 O2 Sat by Pulse 98 100 97 Oximetry 07/25/20 07/25/20 14:12 14:13 Temperature Pulse Rate 81 Respiratory Rate Blood Pressure 120/72 O2 Sat by Pulse Oximetry - Labs CBC & Chem 7: 07/26/20 04:56 07/26/20 04:56 Labs: Abnormal lab results 07/24/20 07/24/20 07/24/20 Range/Units 17:34 18:52 22:24 RBC (3.65-5.03) M/mm3 MCV (84-94) fl MCH (28-32) pg [place] % (Auto) (0.0-7.3) % [place] # (0.0-0.8) K/mm3 Heparin Anti-Xa Level 0.20 L (0.3-0.7) U.I./ml Sodium (137-145) mmol/L Chloride (98-107) mmol/L BUN (9-20) mg/dL Glucose (75-100) mg/dL POC Glucose 235 H 194 H (70-105) Troponin T (0.00-0.029) ng/mL 07/25/20 07/25/20 07/25/20 Range/Units 03:38 03:38 03:38 RBC 5.37 H (3.65-5.03) M/mm3 MCV 82 L (84-94) fl MCH 26 L (28-32) pg [place] % (Auto) 13.6 H (0.0-7.3) % [place] # 1.1 H (0.0-0.8) K/mm3 Heparin Anti-Xa Level 0.26 L (0.3-0.7) U.I./ml Sodium 135 L (137-145) mmol/L Chloride 94.2 L (98-107) mmol/L BUN 31 H (9-20) mg/dL Glucose 157 H (75-100) mg/dL POC Glucose (70-105) Troponin T 1.220 H* (0.00-0.029) ng/mL 07/25/20 07/25/20 Range/Units 08:15 12:33 RBC (3.65-5.03) M/mm3 MCV (84-94) fl MCH (28-32) pg [place] % (Auto) (0.0-7.3) % [place] # (0.0-0.8) K/mm3 Heparin Anti-Xa Level < 0.10 L (0.3-0.7) U.I./ml Sodium (137-145) mmol/L Chloride (98-107) mmol/L BUN (9-20) mg/dL Glucose (75-100) mg/dL POC Glucose 162 H (70-105) Troponin T (0.00-0.029) ng/mL HEART Score - HEART Score EKG: Non-specific Age: 45-65 Risk factors: > 3 risk factors or hx of atherosclerotic disease Troponin: Troponin T 1.220 ng/mL (0.00-0.029) H* 07/25/20 03:38 Troponin: > 3x normal limit
[2020-07-25] MEDS: SODIUM CHLORIDE 0.9% 1000 ML 1,000 ML IV SCH ×2 (16:48→16:50)
--- NOTE | 2020-07-25 17:42 | Cardiac Catherization Report ---
CARDIAC CATHETERIZATION REPORT INDICATION FOR PROCEDURE: The patient is a 59-year-old -[place] gentleman with history of known coronary artery disease. He underwent left internal mammary graft to the LAD, a robotic surgery in 2009 and since that time, he is not followed on a regular basis in the office. He was admitted with complaints of feeling tired and weak for the last couple of days and no complaints of chest pain; however, was admitted to the hospital and was noted to have troponin level elevated. Because of this, the patient underwent cardiac catheterization for definitive diagnosis and treatment. The patient is willing to proceed with cardiac catheterization, but he is aware of the procedure, potential complications and alternatives of therapy available. DESCRIPTION OF PROCEDURE: The patient was brought to the catheterization laboratory in a fasting condition. The patient was evaluated for moderate sedation and was felt to be appropriate candidate for moderate sedation. The patient was prepared in a standard fashion. Right femoral area was thoroughly cleansed with chlorhexidine solution and sterile drapes were applied. Local anesthesia was given in the right groin area. Under fluoroscopy, a right femoral artery puncture was obtained and 5-Emirati sheath was introduced. Left coronary angiography was performed using JL4 catheter, right coronary angiography was performed using mammary catheter. Angiograms of the internal mammary artery were obtained using mammary catheter. At the end of the procedure, angiograms of the right femoral artery were obtained and ProGlide suture closure device was attempted; however, was not successful. Hence, manual pressure was applied and good hemostasis was achieved in the catheterization laboratory. Findings were explained to the patient in detail. The following are the findings: HEMODYNAMICS: 1. Opening aortic pressure 108/71. Left ventricular pressure 109/20. No gradient across the aortic valve. Estimated ejection fraction 40-45%. 2. Left ventriculogram done in BRAUN projection showed very mild diffuse hypokinesis. However, angiogram done in TERESITA projection showed severe hypokinesis of the anterolateral wall. Ejection fraction was felt to be around 40% or so. Mitral regurgitation was not evaluated because of limited amount of dye. 3. Right coronary artery: Dominant vessel, shows only minimal irregularities, arising normally from right coronary cusp. 4. Left coronary artery: Arises normally from left coronary cusp. Left main without significant disease. Circumflex artery shows only minimal irregularities. LAD, which appears to be large in the proximal part, shows severe stenosis of the proximal LAD, around 95% or so. There is complete occlusion in the distal LAD and distal LAD is supplied by left internal mammary graft. Otherwise, no retrograde filling of any large proximal diagonal branch or ramus branch noted. 5. Left internal mammary graft to the LAD is widely patent, smooth. Distal LAD is without significant disease except for very distal part which is very small caliber vessel showing 80% smooth lesion. 6: Collaterals, none. FINAL IMPRESSION: Large, markedly hypokinetic to akinetic lateral wall, etiology for this is not clear. Ejection fraction is mildly impaired in the range of 40% or so. Even the rest of the ventricle, inferior wall and anterior wall are mildly hypokinetic. Widely patent left internal mammary graft to the LAD noted with no significant disease in the circumflex artery and also dominant right coronary artery. Reason for akinetic lateral wall is not clear. No visualization of any occluded vessel noted. Whether this represents viral myocarditis is not clear. Would continue treatment for his LV systolic dysfunction. Findings were explained to the patient in detail. It is to be noted that the patient's presenting symptoms are weakness and tiredness with a low-grade fever. COVID testing was negative. Would continue risk factor modification and medical therapy. Procedure was uncomplicated. Patient's moderate sedation monitoring started at 10:18 AM,ended at 10:51 Am.Patient was monitired through out procedure with pulse oximetry,EKG monitoring and hemodynamic monitoring.Patient is breathing normally ,communicating normally without any focal deficits at end of procedure. JOB# [id number] GURINDER/REYNALDO WHEELER
[2020-07-25 21:14] LABS: Bilirubin,Urine NEG (Negative); Blood,Urine SM (Negative); Color,Urine Yellow (Yellow); Protein,Urine <15 mg/dL mg/dL (Negative)
[2020-07-25 21:15] LABS: RBC,Urine < 1.0 /HPF (0.0-6.0)
[2020-07-26 05:55] LABS: Hematocrit 39.9 % (35.5-45.6); Hemoglobin 12.8 gm/dl (11.8-15.2)
[2020-07-26 06:17] LABS: BUN/Creatinine Ratio 26; Blood Urea Nitrogen 26 mg/dL (9-20); Calcium 8.3 mg/dL (8.4-10.2); Hemolysis Index 5
[2020-07-26] MEDS: LISINOPRIL 10 MG TAB PO SCH (09:38)
[2020-07-26] MEDS: INSULIN LISPRO 100 UNIT/ML VIAL 3 mL SUB-Q SCH ×2 (09:38→13:21)
[2020-07-26] MEDS: METOPROLOL TARTRATE 25 MG TAB PO SCH (09:38)
[2020-07-26] MEDS ORDERED: ASPIRIN 81 MG TAB CHEW PO SCH (10:00)
--- NOTE | 2020-07-26 10:47 | Progress Note ---
Assessment and Plan COVID-19 testing is NEGATIVE. S/p LHC yesterday via right groin approach which showed patent graft, otherwise patent coronaries, EF ~35% - ? viral myocarditis. tte reviewed - EF 40-45%, impaired relaxation, mid anterolateral and apical lateral wall segments are hypokinetic. Pt reports h/o cough with Lisinopril - d/c Lisinopril and initiate Losartan. Cont all other present cardiac management. Pt may discharge from cardiology standpoint. Pt noted to have [employer] insurance. Recommend follow up with [facility] cardiology team or ID cardiology within 1-2 weeks of discharge. The patient has been seen in conjunction with Dr. Marquez who agrees with the assessment and plan of care. - Patient Problems (1) Suspected 2019 novel coronavirus infection Current Visit: Yes Status: Ruled-out Plan to address problem: COVID-19 testing is NEGATIVE. (2) NSTEMI (non-ST elevated myocardial infarction) Current Visit: Yes Status: Acute (3) CAD (coronary artery disease) Current Visit: Yes Status: Chronic (4) History of coronary artery bypass graft Current Visit: Yes Status: Chronic (5) HTN (hypertension) Current Visit: Yes Status: Chronic (6) Hyperlipidemia Current Visit: Yes Status: Chronic (7) Diabetes Current Visit: Yes Status: Chronic Subjective Date of service: 07/26/20 Principal diagnosis: NSTEMI Interval history: pt resting in bed, no current cardiac complaints, no chest pain, in SR on tele, no acute events overnight. Objective Last Vital Signs Temp 99.2 F 07/26/20 04:52 Pulse 77 07/26/20 09:38 Resp 18 07/26/20 04:52 BP 110/73 07/26/20 09:38 Pulse Ox 98 07/26/20 04:52 - Physical Examination General: No Apparent Distress HEENT: Positive: PERRL, Normocephaly, Mucus Membranes Moist Neck: Positive: neck supple, trachea midline Cardiac: Positive: Reg Rate and Rhythm, S1/S2 Lungs: Positive: Decreased Breath Sounds Neuro: Positive: Grossly Intact Abdomen: Negative: Tender Skin: Negative: Rash Incision: Cardiac Cath Site (right groin, c/d/i, no bleeding or hematoma) Musculoskeletal: No Pain Extremities: Absent: edema - Labs and Meds CBC 07/26/20 Range/Units 04:56 Hgb 12.8 (11.8-15.2) gm/dl Hct 39.9 (35.5-45.6) % Plt Count 151 (140-440) K/mm3 Comprehensive Metabolic Panel 07/26/20 Range/Units 04:56 Sodium 134 L (137-145) mmol/L Potassium 3.7 (3.6-5.0) mmol/L Chloride 96.8 L (98-107) mmol/L Carbon Dioxide 22 (22-30) mmol/L BUN 26 H (9-20) mg/dL Creatinine 1.0 (0.8-1.3) mg/dL Glucose 235 H (75-100) mg/dL Calcium 8.3 L (8.4-10.2) mg/dL - Imaging and Cardiology EKG: report reviewed, image reviewed Cardiac cath: report reviewed (03/2010 showed 99% stenosis in ostial LAD, circ with LI, ramus with LI, RCA LI. Pt referred for CABG. ) - Telemetry EKG Rhythm: Sinus Rhythm - EKG Sinus rhythms and dysrhythmias: sinus rhythm Repolarization changes or abnormalities: nonspecific abnormality, ST segment, and/or T wave
--- NOTE | 2020-07-26 11:02 | Discharge Summary ---
Providers - Providers Date of Admission: 07/24/20 03:33 Date of discharge: 07/26/20 Attending physician: KELSEA MARTI 07/24/20 Consult to Cardiac Rehabilitation [CONS] Routine Reason For Exam: Phase I 07/24/20 03:27 Consult to Physician [CONS] Urgent Comment: Dr. Moss spoke with Dr. Anan @ [phone] Consulting Provider: CESAR ANNA Physician Instructions: Reason For Exam: abnormal ekg n stemi 07/24/20 04:19 Consult to Dietitian/Nutrition [CONS] Routine Physician Instructions: Reason For Exam: Reason for Consult: Diet education Consult to Physician [CONS] Routine Comment: Consulting Provider: YEISON BURNS Physician Instructions: Reason For Exam: GENERALIZED WEAKNESS, R/O COVID 07/25/20 11:31 Consult to Cardiac Rehabilitation [CONS] Routine Reason For Exam: Cardiac Rehab Evaluation Primary care physician: STONEWORKING BELT SANDER Hospitalization Condition: Serious Hospital course: The patient is a 59-year-old male with a past medical history of CAD s/p CABG in 2009 (robotic ARANDA to LAD), HTN, DM, HLP presented with c/o generalized weakness, fatigue, vomiting, dry nonproductive cough and SOB for 2 days prior to arrival. Patient admits that he has been exposed to people with positive COVID at his workplace and has been wearing mask intermittently. Patient was admitted with suspected COVID-19 infection and NSTEMI. ECG with NSR and nonspecific abnormalities. Patient was started on IV heparin and ASA 325, initiated statin, lopressor, lisinopril. His COVID 19 test was negative and TTE showed EF 40-45%, impaired relaxation, mid anterolateral and apical lateral wall segments are hypokinetic. Cardiology proceeded with left heart catheterization via right groin approach which showed patent graft, otherwise patent coronaries, EF ~35%. Heparin drip was discontinued, patient was monitored overnight. He was then discharged home in stable condition with outpatient follow-up with cardiology. 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 DC home with outpatient follow-up --New onset systolic CHF with reduced EF on BB and ACEI, dietary and fluid restriction -- Suspected 2019 novel coronavirus infection Patient placed on isolation precautions. COVID19 test was negative --Fever: secondary to ACS vs SIRS from ? unknown source. procal 0.3. Follow blood culture and UA Continue to monitor without antibiotics for now -- DVT prophylaxis, SCD Disposition: DC-01 TO HOME OR SELFCARE Time spent for discharge: 34 minutes Core Measure Documentation - Palliative Care Palliative Care/ Comfort Measures: Not Applicable - Core Measures Any of the following diagnoses?: acute NC, heart failure - Acute NC Discharge Requirements Aspirin at discharge: Yes ARSEN/ARB for LVSD if EF <40%: Yes Beta mariia at discharge: Yes Statin for LDL = or >100 mg/dl on DC: Yes - Heart Failure Discharge Requirements ARSEN/ARB for LVSD if EF <40%: Yes Beta mariia at discharge: Yes Exam - Physical Exam Narrative exam: General appearance: Present: no acute distress, well-nourished - EENT Eyes: Present: PERRL, EOM intact, scleral icterus ENT: hearing intact, clear oral mucosa, dentition normal - Neck Neck: Present: supple, normal ROM - Respiratory Respiratory effort: normal Respiratory: bilateral: CTA - Cardiovascular Rhythm: regular Heart Sounds: Present: S1 & S2. Absent: gallop, rub - Extremities Extremities: no ischemia, pulses intact, pulses symmetrical, No edema, Full ROM - Abdominal General gastrointestinal: Present: soft, non-tender, non-distended, normal bowel sounds. Absent: mass - Integumentary Integumentary: Present: clear, warm, dry. Absent: rash - Musculoskeletal Musculoskeletal: strength equal bilaterally, generalized weakness - Psychiatric Psychiatric: appropriate mood/affect, intact judgment & insight, memory intact, cooperative - Neurologic Neurologic: CNII-XII intact, no focal deficits, moves all extremities - Constitutional Vitals: Temp Pulse Resp BP Pulse Ox 99.2 F 77 18 110/73 98 07/26/20 04:52 07/26/20 09:38 07/26/20 04:52 07/26/20 09:38 07/26/20 04:52 Plan Activity: advance as tolerated Weight Bearing Status: Non-Weight Bearing Diet: low fat, low salt Follow up with: [facility] [Provider Group] - 3-5 Days EDMUND SCHMIDT MD [Staff Physician] - 3-5 Days Forms: Work/School Release Form(ED) Prescriptions: AtorvaSTATin [Lipitor] 80 mg PO QHS #30 tablet Aspirin [Aspirin BABY CHEW TAB] 81 mg PO QDAY #30 tab.chew Losartan [Cozaar] 25 mg PO QDAY #30 tablet Metoprolol [Lopressor TAB] 25 mg PO BID #60 tablet Nitroglycerin [Nitrostat] 0.4 mg SL Q5M PRN #30 tablet PRN Reason: Chest Pain Albuterol Sulfate [Proair Respiclick] 90 mcg IH Q4HR PRN #2 aer.pow.ba PRN Reason: Wheezing Ondansetron [Zofran Odt] 4 mg PO Q8HR PRN #20 tab.rapdis PRN Reason: Nausea
[2020-07-26 13:14] VITALS: BP 119/76
[2020-07-27] MEDS ORDERED: LOSARTAN 25 MG TAB PO SCH (10:00)
== END 2020-07-26 13:37 | disposition home or self-care (01) ==
LOC: ED 20:39 → 3A 07-24 03:33
PROVIDERS: ADMIT Internal Medicine Geriatric Medicine; ATTEND Internal Medicine
DX: I21.4 Non-ST elevation (NSTEMI) myocardial infarction (principal); Z20.828 Contact with and (suspected) exposure to other viral communicable diseases; I25.10 Atherosclerotic heart disease of native coronary artery without angina pectoris; R53.1 Weakness; I11.0 Hypertensive heart disease with heart failure; I50.20 Unspecified systolic (congestive) heart failure; E11.9 Type 2 diabetes mellitus without complications; E78.5 Hyperlipidemia, unspecified; E78.00 Pure hypercholesterolemia, unspecified; Z95.1 Presence of aortocoronary bypass graft; Z79.82 Long term (current) use of aspirin; Z79.4 Long term (current) use of insulin
CPT/HCPCS: 36415; 71046; 80048; 80053; 80061; 81001; 82550; 82962; 83735; 84145; 84484; 85014; 85018; 85025; 85049; 85520; 85610; 85730; 87040; 87086; 93005; 93306; 93459; 96361; 96365; 96366; 96372; 96376; 99291; A9270; C1760; G0378; J1644; J2250; J3010; J7030; J7040; U0003; Q9967